=== PATIENT | male | born 1995 | race Two or more races ===

== ENCOUNTER 2023-05-27 17:35 | Emergency (ER) | payer SELFPAY ==
[~2023-05-27] VITALS: Ht 188 cm; Wt 110.0 kg
[2023-05-27 17:51] VITALS: BP 146/75; PULSE 87; RESP 16; O2SAT 91
[2023-05-28] MEDS ORDERED: AUG875T PO (11:28)
[2023-05-28] MEDS ORDERED: IBUP-1456 PO (11:28)
== END 2023-05-27 22:12 | disposition left against medical advice (07) ==
LOC: ER 17:35 → EDBD 17:35 → ER 22:05
DX: S61.531A Puncture wound without foreign body of right wrist, initial encounter (principal); X58.XXXA Exposure to other specified factors, initial encounter; Y93.89 Activity, other specified; Y92.89 Other specified places as the place of occurrence of the external cause; Y99.8 Other external cause status; M25.431 Effusion, right wrist

== ENCOUNTER 2023-05-28 09:21 | Emergency (ER) | payer MEDICAID, OTHER ==
[~2023-05-28] VITALS: Ht 185.4 cm; Wt 106.9 kg
[2023-05-28 10:34] VITALS: BP 101/66; PULSE 77; RESP 16; TEMP 97.1; O2SAT 96
[2023-05-28] MEDS ORDERED: cefTRIAXone SOD 1,000 MG VL IM ONE (11:00)
[2023-05-28] MEDS ORDERED: IBUP-1456 PO (11:28)
[2023-05-28] MEDS ORDERED: AUG875T PO (11:28)
== END 2023-05-28 11:41 | disposition home or self-care (01) ==
LOC: ER 09:21
DX: S61.531A Puncture wound without foreign body of right wrist, initial encounter (principal); Z59.00 Homelessness unspecified; W54.0XXA Bitten by dog, initial encounter; Y93.89 Activity, other specified; Y92.89 Other specified places as the place of occurrence of the external cause; Y99.8 Other external cause status
CPT/HCPCS: 73130; 96372; 99283; J0696